=== PATIENT | male | born 1970 | race Caucasian/White ===

== ENCOUNTER 2022-07-13 08:42 | Day surgery (SDC) | payer OTHER ==
[~2022-07-13] VITALS: Ht 190.5 cm; Wt 80.8 kg
[~2022-07-13 08:42] MED LIST: FLOM0.4C39 PO; MELA2.5C4 PO; NS 1,000 ML IV ONE; OXYB10TA23 PO; SIMV40TA20 PO
[2022-07-13] MEDS ORDERED: propofoL 200 MG/20 ML VIAL As Ordered ONE (10:35)
[2022-07-13 11:13] VITALS: BP 108/64
== END 2022-07-13 11:29 | disposition home or self-care (01) ==
LOC: M OPP 08:42
PROVIDERS: ATTEND Internal Medicine Gastroenterology
DX: K63.5 Polyp of colon (principal); K57.30 Diverticulosis of large intestine without perforation or abscess without bleeding; K64.8 Other hemorrhoids; Z12.11 Encounter for screening for malignant neoplasm of colon

== ENCOUNTER → 2023-05-24 | Outpatient (CLI) | payer BC ==
[~2023-05-24] MED LIST changes: -NS 1,000 ML IV ONE
== END ==
LOC: M RAD 10:00
PROVIDERS: ATTEND Physician Assistant
DX: N50.82 Scrotal pain (principal); N43.3 Hydrocele, unspecified; N50.3 Cyst of epididymis; N44.2 Benign cyst of testis